=== PATIENT | male | born 1960 | race Caucasian/White ===

== ENCOUNTER 2019-10-13 19:30 | Outpatient (CLI) | payer BC | END 2019-10-13 19:31 | disposition home or self-care (01) | LOC: SLEEPLAB 19:30 | PROVIDERS: ATTEND Otolaryngology Plastic Surgery within the Head & Neck | DX: G47.33 Obstructive sleep apnea (adult) (pediatric) (principal); R06.83 Snoring; E66.9 Obesity, unspecified; I48.91 Unspecified atrial fibrillation; I49.3 Ventricular premature depolarization; Z68.41 Body mass index [BMI] 40.0-44.9, adult | CPT/HCPCS: 95811 ==

== ENCOUNTER 2022-08-22 06:06 | Day surgery (SDC) | payer BC ==
[2022-08-20 15:01] VITALS: BMI 43.0
[2022-08-22] MEDS ORDERED: Protamine Sulfate 50 MG/5 ML VIAL ONE (06:50)
[2022-08-22] MEDS ORDERED: Heparin 25,000 units/D5W 500 ML ONE (06:50)
[2022-08-22] MEDS ORDERED: Heparin 10,000 UNITS/ 10 ML VIAL ONE (06:50)
[2022-08-22] MEDS ORDERED: Dehydrated Alcohol 99% 5 ML VIAL ONE (07:30)
[2022-08-22] MEDS ORDERED: Dexamethasone 20 MG/5 ML VIAL ONE (07:31)
[2022-08-22] MEDS ORDERED: Ondansetron PF 4 MG/2 ML Vial ONE (07:31)
[2022-08-22] MEDS ORDERED: Succinylcholine 200 MG/10 ml SYRINGE FS ONE (07:31)
[2022-08-22] MEDS ORDERED: Phenylephrine 10 MG/ML VIAL ONE (07:31)
[2022-08-22] MEDS ORDERED: PROPOFOL 200 MG/20 ML VIAL ONE (07:31)
[2022-08-22] MEDS ORDERED: Iopamidol 370 76% 100 ML VIAL ONE (15:46)
== END 2022-08-22 14:33 | disposition home or self-care (01) ==
LOC: SDC 06:06
PROVIDERS: ATTEND Internal Medicine Cardiovascular Disease
PROC: 4A0234Z Measurement of Cardiac Electrical Activity, Percutaneous Approach (ICD-10-PCS; principal; 2022-08-22)
PROC: 02583ZZ Destruction of Conduction Mechanism, Percutaneous Approach (ICD-10-PCS; principal; 2022-08-22)
PROC: 4A023FZ Measurement of Cardiac Rhythm, Percutaneous Approach (ICD-10-PCS; principal; 2022-08-22)
PROC: B246ZZ4 Ultrasonography of Right and Left Heart, Transesophageal (ICD-10-PCS; principal; 2022-08-22)
PROC: 02K83ZZ Map Conduction Mechanism, Percutaneous Approach (ICD-10-PCS; principal; 2022-08-22)
DX: I48.19 Other persistent atrial fibrillation (principal); I11.9 Hypertensive heart disease without heart failure; I48.4 Atypical atrial flutter; G47.33 Obstructive sleep apnea (adult) (pediatric); I47.1 Supraventricular tachycardia; Z79.01 Long term (current) use of anticoagulants; Z79.84 Long term (current) use of oral hypoglycemic drugs; Z79.899 Other long term (current) drug therapy
CPT/HCPCS: 85347; 93005; 93312; 93655; 93656; C1725; C1732; C1759; C1760; C1769; C1894; C2630; J1100; J1644; J2370; J2405; J2704; J2720; Q9967

== ENCOUNTER 2024-06-23 09:30 | Outpatient (CLI) | payer BC | END 2024-06-23 09:31 | disposition home or self-care (01) | LOC: PET 09:30 | PROVIDERS: ATTEND Internal Medicine | DX: C83.36 Diffuse large B-cell lymphoma, intrapelvic lymph nodes (principal); R59.0 Localized enlarged lymph nodes | CPT/HCPCS: 78815; A9552 ==